=== PATIENT | female | born 1985 | race Hispanic/Latino ===

== ENCOUNTER 2020-07-09 05:36 | Inpatient (IN) | payer BC ==
[2020-07-09] MEDS ORDERED: Dexamethasone 10 MG/ML VIAL ONE (06:17)
[2020-07-09] MEDS ORDERED: Acetaminophen 500 MG TAB ONE (06:17)
[2020-07-09 06:25] LABS: #Lymphocytes 1.2 thou/uL (1.20-3.40); #Monocytes 0.3 thou/uL (0.11-0.59); #Neutrophils 4.1 thou/uL (1.40-6.50); %Basophils 0.6 % (0.0-1.0); %Eosinophils 0.2 % (0.0-10.0); %Lymphocytes 20.8 % (21.0-51.0); %Monocytes 5.4 % (0.0-10.0); %Neutrophils 72.9 % (42.0-75.0); Hemoglobin 13.3 g/dL (12.0-16.0); Mean Corpuscular HGB CONC 32.4 g/dL (32.0-36.0); Mean Corpuscular Hemoglobin 29.3 pg (27.0-31.0); Mean Corpuscular Volume 90.5 fL (78.0-98.0); Mean Platelet Volume 7.3 fL (7.4-10.4); Platelet Count 231 thou/uL (130-400); RBC Distribution Width 11.9 % (11.5-14.5); Red Blood Cell (RBC) Count 4.54 mill/uL (4.20-5.40); White Blood Cell (WBC) Count 5.7 thou/uL (4.8-10.8)
[2020-07-09 06:37] LABS: ALT (SGPT) 56 U/L (8-55); AST (SGOT) 64 U/L (5-34); Albumin 3.8 g/dL (3.5-5.0); Alkaline Phosphatase 90 U/L (40-110); Anion Gap 15 mmol/L (10-20); BUN (Urea Nitrogen) 7 mg/dL (7.0-18.7); Bilirubin, Total 0.5 mg/dL (0.2-1.2); Calc. Creatinine Clearance 0 mL/min (70-130); Carbon Dioxide 25 mmol/L (22-29); Chloride 97 mmol/L (98-107); Globulin 3.6 g/dL (2.4-3.5); Glucose 123 mg/dL (70-105); Protein, Total 7.4 g/dL (6.0-8.3); Sodium 134 mmol/L (136-145)
[2020-07-09 06:40] LABS: Potassium 2.9 mmol/L (3.5-5.1)
[2020-07-09] MEDS ORDERED: Potassium Chloride 20 MEQ TAB ONE (06:42)
[2020-07-09] MEDS ORDERED: Acetaminophen 650 MG Suppository PR PRN (09:37)
[2020-07-09] MEDS ORDERED: Loperamide HCl 2 MG CAP PO PRN ×2 (09:37)
[2020-07-09] MEDS ORDERED: REMDESIVIR (EUA) 200 MG in Sodium Chloride 0.9% 250 ML 210 ML IV SCH (09:45)
[2020-07-09] MEDS ORDERED: Enoxaparin Sodium 40 MG/0.4 ML SYRINGE SC SCH (09:45)
[2020-07-09 10:39] VITALS: BMI 47.9
[2020-07-09] MEDS ORDERED: Albuterol 200 PUFF (6.7GM INHALER) INH PRN (10:53)
[2020-07-09] MEDS: Guaifenesin DM 100-10/5 ML UDCUP PO PRN ×2 (15:21→21:42)
[2020-07-10 06:50] LABS: #Monocytes 0.6 thou/uL (0.11-0.59); %Basophils 0.5 % (0.0-1.0); %Eosinophils 0.2 % (0.0-10.0); %Lymphocytes 21.7 % (21.0-51.0); %Monocytes 13.4 % (0.0-10.0); %Neutrophils 64.2 % (42.0-75.0); Hemoglobin 13.1 g/dL (12.0-16.0); Mean Corpuscular HGB CONC 32.4 g/dL (32.0-36.0); Mean Corpuscular Hemoglobin 29.5 pg (27.0-31.0); Mean Corpuscular Volume 90.9 fL (78.0-98.0); Mean Platelet Volume 7.4 fL (7.4-10.4); Platelet Count 274 thou/uL (130-400); RBC Distribution Width 11.9 % (11.5-14.5); Red Blood Cell (RBC) Count 4.45 mill/uL (4.20-5.40); White Blood Cell (WBC) Count 4.6 thou/uL (4.8-10.8)
[2020-07-10 07:26] LABS: ALT (SGPT) 63 U/L (8-55); AST (SGOT) 76 U/L (5-34); Albumin 3.6 g/dL (3.5-5.0); Alkaline Phosphatase 87 U/L (40-110); Anion Gap 15 mmol/L (10-20); BUN (Urea Nitrogen) 9 mg/dL (7.0-18.7); Bilirubin, Total 0.5 mg/dL (0.2-1.2); Calc. Creatinine Clearance 224 mL/min (70-130); Calcium 8.7 mg/dL (7.8-10.44); Carbon Dioxide 25 mmol/L (22-29); Chloride 102 mmol/L (98-107); Glucose 140 mg/dL (70-105); Potassium 3.7 mmol/L (3.5-5.1); Protein, Total 7.6 g/dL (6.0-8.3); Sodium 138 mmol/L (136-145)
[2020-07-10] MEDS: Dexamethasone 4 MG TAB PO SCH (08:40)
[2020-07-10] MEDS: Zinc Sulfate 220 MG CAP PO SCH (08:40)
[2020-07-10] MEDS: Acetaminophen 325 MG TAB PO PRN (08:40)
[2020-07-10] MEDS: Ascorbic Acid 500 mg Chewable Tablet PO SCH (08:40)
[2020-07-10] MEDS: Enoxaparin Sodium 40 MG/0.4 ML SYRINGE SC SCH (08:40)
[2020-07-10] MEDS: Guaifenesin DM 100-10/5 ML UDCUP PO PRN ×2 (08:41→20:43)
[2020-07-10] MEDS: REMDESIVIR (EUA) 100 MG in Sodium Chloride 0.9% 250 ML 230 ML IV SCH (12:45)
[2020-07-10] MEDS: Benzonatate 100 MG CAP PO SCH ×2 (16:19→20:43)
[2020-07-10] MEDS: Colchicine 0.6 MG TAB PO SCH (20:43)
[2020-07-11] MEDS: Guaifenesin DM 100-10/5 ML UDCUP PO PRN (05:07)
[2020-07-11 07:04] LABS: ALT (SGPT) 52 U/L (8-55); AST (SGOT) 48 U/L (5-34); Albumin 3.5 g/dL (3.5-5.0); Alkaline Phosphatase 82 U/L (40-110); Anion Gap 13 mmol/L (10-20); BUN (Urea Nitrogen) 12 mg/dL (7.0-18.7); Bilirubin, Total 0.5 mg/dL (0.2-1.2); CRP (Inflammatory) 4.03 mg/dL (= or < 0.5); Calc. Creatinine Clearance 224 mL/min (70-130); Calcium 8.1 mg/dL (7.8-10.44); Carbon Dioxide 28 mmol/L (22-29); Chloride 102 mmol/L (98-107); Globulin 3.4 g/dL (2.4-3.5); Glucose 138 mg/dL (70-105); Protein, Total 6.9 g/dL (6.0-8.3); Sodium 140 mmol/L (136-145)
[2020-07-11] MEDS ORDERED: Potassium Chloride 20 MEQ TAB PO SCH (07:30)
[2020-07-11] MEDS: Dexamethasone 4 MG TAB PO SCH (08:36)
[2020-07-11] MEDS: Colchicine 0.6 MG TAB PO SCH ×2 (08:37→20:45)
[2020-07-11] MEDS: Ascorbic Acid 500 mg Chewable Tablet PO SCH (08:37)
[2020-07-11] MEDS: Benzonatate 100 MG CAP PO SCH ×3 (08:37→20:45)
[2020-07-11] MEDS: Zinc Sulfate 220 MG CAP PO SCH (08:37)
[2020-07-11] MEDS: Enoxaparin Sodium 40 MG/0.4 ML SYRINGE SC SCH (08:37)
[2020-07-11] MEDS ORDERED: guaiFENesin/Codeine 200 mg/20 mg 10 ml Cup PO SCH (10:15)
[2020-07-11] MEDS: REMDESIVIR (EUA) 100 MG in Sodium Chloride 0.9% 250 ML 230 ML IV SCH (12:10)
[2020-07-11] MEDS: guaiFENesin ER 600 MG TAB PO SCH (20:45)
[2020-07-11] MEDS: guaiFENesin/Codeine 200 mg/20 mg 10 ml Cup PO PRN (20:46)
[2020-07-12] MEDS: guaiFENesin/Codeine 200 mg/20 mg 10 ml Cup PO PRN ×3 (05:34→17:40)
[2020-07-12] MEDS: Colchicine 0.6 MG TAB PO SCH ×2 (08:21→20:04)
[2020-07-12] MEDS: Dexamethasone 4 MG TAB PO SCH (08:22)
[2020-07-12] MEDS: Benzonatate 100 MG CAP PO SCH ×3 (08:22→20:04)
[2020-07-12] MEDS: Ascorbic Acid 500 mg Chewable Tablet PO SCH (08:22)
[2020-07-12] MEDS: Zinc Sulfate 220 MG CAP PO SCH (08:22)
[2020-07-12] MEDS: guaiFENesin ER 600 MG TAB PO SCH ×2 (08:22→20:04)
[2020-07-12] MEDS: Enoxaparin Sodium 40 MG/0.4 ML SYRINGE SC SCH (08:23)
[2020-07-12] MEDS ORDERED: Ondansetron PF 4 MG/2 ML Vial IVP PRN (10:45)
[2020-07-12] MEDS: Acetaminophen 325 MG TAB PO PRN (11:14)
[2020-07-12] MEDS: REMDESIVIR (EUA) 100 MG in Sodium Chloride 0.9% 250 ML 230 ML IV SCH (13:30)
[2020-07-13 06:54] LABS: ALT (SGPT) 41 U/L (8-55); AST (SGOT) 38 U/L (5-34); Albumin 3.5 g/dL (3.5-5.0); Alkaline Phosphatase 74 U/L (40-110); Anion Gap 14 mmol/L (10-20); BUN (Urea Nitrogen) 12 mg/dL (7.0-18.7); Bilirubin, Total 0.5 mg/dL (0.2-1.2); CRP (Inflammatory) 1.34 mg/dL (= or < 0.5); Calc. Creatinine Clearance 217 mL/min (70-130); Calcium 8.1 mg/dL (7.8-10.44); Carbon Dioxide 25 mmol/L (22-29); Chloride 100 mmol/L (98-107); Globulin 3.2 g/dL (2.4-3.5); Glucose 96 mg/dL (70-105); Potassium 3.1 mmol/L (3.5-5.1); Protein, Total 6.7 g/dL (6.0-8.3); Sodium 136 mmol/L (136-145)
[2020-07-13] MEDS ORDERED: Potassium Chloride 20 MEQ TAB PO SCH (07:45)
[2020-07-13 07:54] VITALS: BP 132/75; TEMP 97.7
[2020-07-13] MEDS: Colchicine 0.6 MG TAB PO SCH (08:36)
[2020-07-13] MEDS: Ascorbic Acid 500 mg Chewable Tablet PO SCH (08:36)
[2020-07-13] MEDS: Zinc Sulfate 220 MG CAP PO SCH (08:36)
[2020-07-13] MEDS: Dexamethasone 4 MG TAB PO SCH (08:36)
[2020-07-13] MEDS: guaiFENesin ER 600 MG TAB PO SCH (08:36)
[2020-07-13] MEDS: Enoxaparin Sodium 40 MG/0.4 ML SYRINGE SC SCH (08:36)
[2020-07-13] MEDS: Benzonatate 100 MG CAP PO SCH ×2 (08:36→15:36)
[2020-07-13] MEDS: REMDESIVIR (EUA) 100 MG in Sodium Chloride 0.9% 250 ML 230 ML IV SCH (11:33)
== END 2020-07-13 16:36 | disposition home or self-care (01) | DRG 177 ==
LOC: ERS 05:36 → T4-A 08:48
PROVIDERS: ADMIT Internal Medicine; ATTEND Family Medicine
PROC: 8E0ZXY6 Isolation (ICD-10-PCS; principal; 2020-07-09)
PROC: XW033E5 Introduction of Remdesivir Anti-infective into Peripheral Vein, Percutaneous Approach, New Technology Group 5 (ICD-10-PCS; 2020-07-09)
DX: U07.1 COVID-19 (principal); J12.82 Pneumonia due to coronavirus disease 2019; J96.01 Acute respiratory failure with hypoxia; Z68.42 Body mass index [BMI] 45.0-49.9, adult; E87.6 Hypokalemia; R74.01 Elevation of levels of liver transaminase levels; E66.01 Morbid (severe) obesity due to excess calories
CPT/HCPCS: 36415; 71275; 80053; 82728; 83605; 83735; 83880; 84484; 85025; 85379; 86140; 87040; 93005; 96374; J1100; J1650; J2405; J7050; J8540